=== PATIENT | female | born 1965 | race Caucasian/White ===

== ENCOUNTER 2022-10-25 13:14 | Outpatient (CLI) | payer BC | END 2022-10-25 13:15 | disposition home or self-care (01) | LOC: CSHMAMMO 13:14 | PROVIDERS: ATTEND Internal Medicine | DX: Z12.31 Encounter for screening mammogram for malignant neoplasm of breast (principal) | CPT/HCPCS: 77063; 77067 ==

== ENCOUNTER 2022-10-25 13:42 | Outpatient (CLI) | payer BC | END 2022-10-25 13:43 | disposition home or self-care (01) | LOC: CSHRAD 13:42 | PROVIDERS: ATTEND Internal Medicine | DX: R53.83 Other fatigue (principal) | CPT/HCPCS: 71046 ==

== ENCOUNTER 2023-12-15 07:40 | Outpatient (CLI) | payer BC | END 2023-12-15 07:41 | disposition home or self-care (01) | LOC: CSHMAMMO 07:40 | PROVIDERS: ATTEND Internal Medicine | DX: Z78.0 Asymptomatic menopausal state (principal); M85.89 Other specified disorders of bone density and structure, multiple sites | CPT/HCPCS: 77080 ==

== ENCOUNTER 2023-12-22 12:45 | Outpatient (CLI) | payer BC | END 2023-12-22 12:46 | disposition home or self-care (01) | LOC: CSHMAMMO 12:45 | PROVIDERS: ATTEND Internal Medicine | DX: Z12.31 Encounter for screening mammogram for malignant neoplasm of breast (principal) | CPT/HCPCS: 77063; 77067 ==